=== PATIENT | male | born 1960 | race Hispanic/Latino ===

== ENCOUNTER → 2017-05-21 | Day surgery (SDC) | payer OTHER ==
[~2017-05-21] MED LIST: CITALOPRAM HBR20 MG PO; FENTANYL CITRATE/PF 100MCG/2 ML INJ ONE; HYOSCYAMINE SULFATE 0.5 MG/ML AMP ONE; MIDAZOLAM HCL 2 MG/2 ML VIAL ONE; PROPOFOL IV EMULSION 10 MG/ML 50 ML VIAL ONE
--- NOTE | 2017-05-21 13:30 | Operative Report ---
DATE OF PROCEDURE: May 21, 2017 REFERRING PHYSICIAN: Dr. Jules Alfonso. PROCEDURES PERFORMED 1. Esophagogastroduodenoscopy with biopsies. 2. Colonoscopy with polypectomy. INDICATIONS FOR EGD: Heartburn. INDICATIONS FOR COLONOSCOPY: Colorectal cancer screening. Positive Cologuard test. MEDICATION: Patient was done under MAC. Please see anesthesiologist's note. PROCEDURE: With the patient in the left lateral decubitus position, the flexible fiberoptic Olympus gastroscope was introduced into the esophagus under direct visualization without any difficulty. There was some patchy erythema noted in the distal esophagus. A minute tongue of velvety red mucosa was noted to extend proximally from the GE junction, and that was biopsied to rule out Rodriguez's. The scope was then advanced with ease into the stomach. Mucosa overlying the antrum and the body revealed some patchy erythema and low-grade to moderate edema, and biopsies were obtained and sent to stain for H. pylori. Pylorus appeared to be of normal contour and shape. It was intubated with ease, and the scope was advanced all the way to the 2nd portion of the duodenum. The scope was then withdrawn slowly. Mucosa overlying the proximal 2nd portion and the duodenal bulb appeared to be within normal limits. The scope was then withdrawn back into the stomach and retroflexed. The mucosa overlying the fundus and the cardia appeared to be within normal limits. The scope was then straightened out. The stomach was decompressed. The scope was subsequently withdrawn. Patient tolerated the procedure well. IMPRESSION 1. Distal esophagitis. 2. Rule out Rodriguez's esophagus. 3. Gastritis, biopsied. Biopsies sent to stain for H. pylori. PLAN: Follow up histology. Initiate Protonix 40 mg 1 p.o. q.a.m. a.c. The patient was then turned around. After adequate lubrication of the anal canal, a flexible fiberoptic Olympus colonoscope was inserted into the rectum with ease and advanced all the way to the cecum. A large polypoid lesion was noted in the proximal ascending colon just above the ileocecal valve, and that was partially resected per piecemeal electrocautery and the cautery site was hemoclipped prophylactically. There was a polyp in the cecum and 2 additional polyps in the proximal ascending. Those were not removed as if the mass turns out to be malignant then those will be resected with the surgical specimen. The transverse appeared to be within normal limits. One polyp was snared from the descending colon. Sigmoid and rectum appeared to be within normal limits. The scope was then retroflexed into the distal rectum, and small internal hemorrhoids were noted, none of which was actively bleeding. The scope was then straightened out. The rectosigmoid area as well as the distal rectal area were decompressed. Scope was subsequently withdrawn. Patient tolerated procedure well. IMPRESSION 1. Large polypoid mass, proximal ascending colon, just proximal to the ileocecal valve, partially resected per piecemeal electrocautery. Site hemoclipped prophylactically. 2. Descending colon polyp, snared. 3. Internal hemorrhoids, none actively bleeding. PLAN: Follow up histology. If negative for malignancy, will need a repeat colonoscopy to attempt to remove residual tissue and synchronous polyps. Job#: [id number] cc:JULES ALFONSO MD
== END | disposition home or self-care (01) ==
LOC: OR 09:00
PROVIDERS: ATTEND Internal Medicine Gastroenterology
DX: R19.5 Other fecal abnormalities (principal); D12.0 Benign neoplasm of cecum; D12.4 Benign neoplasm of descending colon; K29.50 Unspecified chronic gastritis without bleeding; K63.89 Other specified diseases of intestine; K20.9 Esophagitis, unspecified; K64.8 Other hemorrhoids; B96.81 Helicobacter pylori [H. pylori] as the cause of diseases classified elsewhere; R03.0 Elevated blood-pressure reading, without diagnosis of hypertension; R00.1 Bradycardia, unspecified; F32.9 Major depressive disorder, single episode, unspecified; F41.9 Anxiety disorder, unspecified; Z01.810 Encounter for preprocedural cardiovascular examination; Z68.29 Body mass index [BMI] 29.0-29.9, adult; Z87.891 Personal history of nicotine dependence
CPT/HCPCS: 43239; 45385; 45388; 93005; J1980; J2250; 45384

== ENCOUNTER → 2017-06-12 | Day surgery (SDC) | payer OTHER ==
[~2017-06-12] MED LIST changes: +FLAGYL500 MG PO; +LIDOCAINE HCL 2% LOCAL INJ 5 ML SDV VIAL INJ ONE; +PROPOFOL IV EMULSION 10 MG/ML 20 ML VIAL ONE; +VIT D PO
--- NOTE | 2017-06-12 16:50 | Operative Report ---
DATE OF PROCEDURE: June 12, 2017 REFERRING PHYSICIAN: Dr. Jules Alfonso. PROCEDURE PERFORMED: Colonoscopy and polypectomy. INDICATIONS FOR COLONOSCOPY: Patient with a history of large mass ascending colon, partially resected per piecemeal electrocautery previously. MEDICATION: Patient was done under MAC. Please see anesthesiologist's note. PROCEDURE: With the patient in the left lateral decubitus position, the flexible fiberoptic Olympus colonoscope was inserted into the rectum with ease and advanced all the way to the cecum. One polyp was snared from the cecum. One polyp was snared from the ascending colon. The site of the previously resected mass was noted, and some residual polypoid tissue was noted. The site was elevated with normal saline injection. Then it was extensively hot biopsied. It was hemoclipped x3 prophylactically. The rest of the ascending appeared to be within normal limits. Two minute polyps were hot biopsied from the distal transverse colon. Descending, sigmoid and rectum appeared to be within normal limits. The scope was then retroflexed into the distal rectum and small internal hemorrhoids were noted, none of which was actively bleeding. The scope was then straightened out. It was subsequently withdrawn. Patient tolerated procedure well. IMPRESSION: 1. Cecal polyp snared times 1. 2. Ascending colon polyp snared times 1. 3. Site of previously resected mass elevated with saline injection, extensively hot biopsied, hemoclipped x3 prophylactically. 4. Transverse colon polyps times 2 hot biopsied. 5. Internal hemorrhoids, none actively bleeding. PLAN: Follow up histology. Initiate high-fiber low-fat diet. Initiate high-fiber supplement. If pathology comes back none malignant, patient will need a followup colonoscopy in 6 months. Job#: [id number] cc:JULES ALFONSO MD
== END | disposition home or self-care (01) ==
LOC: OR 11:38
PROVIDERS: ATTEND Internal Medicine Gastroenterology
DX: D12.0 Benign neoplasm of cecum (principal); D12.2 Benign neoplasm of ascending colon; D12.3 Benign neoplasm of transverse colon; D12.4 Benign neoplasm of descending colon; K63.89 Other specified diseases of intestine; K29.70 Gastritis, unspecified, without bleeding; K20.8 Other esophagitis; K21.9 Gastro-esophageal reflux disease without esophagitis; K64.8 Other hemorrhoids; B96.81 Helicobacter pylori [H. pylori] as the cause of diseases classified elsewhere; R00.1 Bradycardia, unspecified; F32.9 Major depressive disorder, single episode, unspecified; Z01.810 Encounter for preprocedural cardiovascular examination; Z68.28 Body mass index [BMI] 28.0-28.9, adult
CPT/HCPCS: 45381; 45384; 45385; 93005; J1980; J2001; J2250